=== PATIENT | female | born 1970 | race Caucasian/White ===

== ENCOUNTER 2017-11-11 15:48 | Emergency (ER) | payer MEDICAID ==
[2017-11-11 17:27] VITALS: BP 111/67
== END 2017-11-11 17:27 | disposition home or self-care (01) ==
LOC: ED 15:48
DX: B34.9 Viral infection, unspecified (principal)

== ENCOUNTER 2019-09-23 13:52 | Emergency (ER) | payer MEDICAID ==
[~2019-09-23] VITALS: Ht 154.9 cm; Wt 72.1 kg
[2019-09-23 17:43] VITALS: BP 135/71
== END 2019-09-23 17:43 | disposition home or self-care (01) ==
LOC: ED 13:52
DX: S93.401A Sprain of unspecified ligament of right ankle, initial encounter (principal); X50.1XXA Overexertion from prolonged static or awkward postures, initial encounter; Y93.89 Activity, other specified; Y92.89 Other specified places as the place of occurrence of the external cause; Y99.8 Other external cause status

== ENCOUNTER 2020-09-20 11:15 | Emergency (ER) | payer MEDICAID ==
[~2020-09-20] VITALS: Ht 154.9 cm; Wt 72.6 kg
[2020-09-20 11:36] VITALS: Ht 154.9 cm; Wt 72.6 kg
[2020-09-20 12:38] LABS: BASOPHIL % 0.3 % (0-2); PLATELET COUNT 316 x10^3mcL (130-400)
[2020-09-20 13:06] LABS: ALKALINE PHOSPHATASE 76 U/L (46-116); ALT/SGPT 32 U/L (14-59); AST/SGOT 18 U/L (15-37); BILIRUBIN TOTAL 0.3 mg/dL (0.20-1.00); CALCIUM 8.3 mg/dL (8.5-10.1); CARBON DIOXIDE 24.2 mmol/L (21-32); CHLORIDE SERUM 104 mmol/L (98-107); CREATININE SERUM 0.7 mg/dL (0.6-1.0); GFR1 > 60 mL/min; GLUCOSE SERUM 87 mg/dL (74-106); LIPASE 87 IU/L (73-393); POTASSIUM SERUM 3.7 mmol/L (3.5-5.1); SODIUM SERUM 137 mmol/L (136-145); TOTAL PROTEIN, SERUM 6.9 g/dL (6.4-8.2)
[2020-09-20 13:11] LABS: ALBUMIN 3.2 g/dL (3.4-5.0)
[2020-09-20 13:47] VITALS: BP 125/74
== END 2020-09-20 15:09 | disposition home or self-care (01) ==
LOC: ED 11:15
PROVIDERS: Emergency Medicine
DX: K29.70 Gastritis, unspecified, without bleeding (principal); Z90.49 Acquired absence of other specified parts of digestive tract